=== PATIENT | female | born 1975 | race Caucasian/White ===

== ENCOUNTER → 2017-11-07 11:42 | Outpatient (CLI) | payer OTHER ==
[2009-09-08 13:24] VITALS: BMI 31.6
== END | disposition home or self-care (01) ==
LOC: D.CT 11:30
DX: L02.01 Cutaneous abscess of face (principal)

== ENCOUNTER → 2018-09-02 22:00 | Outpatient (CLI) | payer OTHER ==
[2009-09-08 13:24] VITALS: BMI 31.6
== END | disposition home or self-care (01) ==
LOC: D.MAMMO 08-19 11:00
DX: Z12.31 Encounter for screening mammogram for malignant neoplasm of breast (principal)